=== PATIENT | female | born 1990 | race Caucasian/White ===

== ENCOUNTER → 2018-10-13 10:40 | Outpatient (CLI) | payer BC, SELFPAY ==
[2017-05-16 15:45] VITALS: BMI 20.5
--- NOTE | 2018-10-13 10:42 | RAD_ITS ---
STUDY: X-RAY - LEFT ELBOW REASON FOR EXAM: Female, 28 years old. Pain. TECHNIQUE: 3 view(s) of the elbow. COMPARISON: None. FINDINGS: Normal visualized humerus, radius and ulna. Normal radiocapitellar and ulnotrochlear articulations. The soft tissue structures are unremarkable. RAD/Elbow min 3 Views IMPRESSION: Normal x-ray examination of the elbow. Electronically Signed: Titi Rodriguez MD at 11:12 EST Tel , Service support ,
== END ==
PROVIDERS: Family Provider Family Medicine; PCP Family Medicine; Referring Provider Physician Assistant; Visit Provider Physician Assistant
DX: M25.522 Pain in left elbow (principal)
CPT/HCPCS: 73080

== ENCOUNTER → 2018-10-25 07:09 | Outpatient (CLI) | payer BC, SELFPAY ==
[2017-05-16 15:45] VITALS: BMI 20.5
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
== END ==
PROVIDERS: Family Provider Family Medicine; PCP Family Medicine; Referring Provider Physician Assistant; Visit Provider Physician Assistant
DX: S46.912A Strain of unspecified muscle, fascia and tendon at shoulder and upper arm level, left arm, initial encounter (principal); S53.402A Unspecified sprain of left elbow, initial encounter; S59.902A Unspecified injury of left elbow, initial encounter
CPT/HCPCS: 73221

== ENCOUNTER 2019-09-23 11:55 | Inpatient (IN) | payer BC, SELFPAY ==
[2017-05-16 15:45] VITALS: BMI 20.5
[2019-09-23 11:05] VITALS: BMI 26.5
[2019-09-23 11:39] LABS: ROM Internal Control Test YES-OK TO RESULT pt. (Internal QC); ROM Patient Test Negative (Negative)
[2019-09-23] MEDS: 0.9% Saline Lock 10 ML Syringe IV ×2 (12:20→17:50)
[2019-09-23 12:46] LABS: Absolute Lymphocyte Count 2.12 X10^3/uL (0.83-4.51); Absolute Neutrophil Count 9.8 X10^3/uL (2.0-7.7); Basophil# 0.03 X10^3/uL; Basophil% 0.2 % (0-1); Eosinophil# 0.08 X10^3/uL; Eosinophils% 0.6 % (0-5); Hemoglobin 13.7 g/dL (12.0-15.0); Lymphocyte # 2.12 X10^3/ul (4.0); Lymphocyte % 16.4 % (19-41); Mean Corp Hgb Conc 33.4 g/dL (32-36); Mean Corpuscular Hgb 29.7 pg (27.0-32.0); Mean Corpuscular Volume 88.7 fL (81-99); Mean Platelet Vol. 12.2 fl (6.2-12.0); Monocyte# 0.83 X10^3/uL; Monocyte% 6.4 % (0-10); NRBC Flagged by Analyzer 0 % (0-5); Neutrophil # 9.77 X10^3/uL (2.7-7.7); Neutrophil % 75.5 % (47-70); Platelet Count 197 K/mm3 (150-450); RBC Distribution Width CV 13.8 % (11.6-14.6); RBC Distribution Width SD 44.7 fl (35.1-43.9); Red Blood Count 4.62 M/mm3 (4.2-5.4); White Blood Count 12.9 K/mm3 (4.4-11.0)
[2019-09-23] MEDS: Lactated Ringers 500 ML 999 ML IV (17:50)
[2019-09-23] MEDS: Lactated Ringers 1,000 ML 200 ML IV ×2 (18:20→20:06)
--- NOTE | 2019-09-23 18:24 | PCM.HP.OB ---
History Date of Admission: 09/23/19 Final RENATA: 09/25/19 Gestational age: 39 Weeks and 5 Days History of this : This is a 29 year-old, G 1P0 @ 39.5 wks with spontaneous rupture membranes at 10:30 AM on 09/23/2019 in early labor. 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 Surgical History: Surgical History (Last Updated 10/13/18 @ 10:30 by Kristine Porter) history of left fibula removal history of repair of collar bone Allergies prochlorperazine [From Compazine] Adverse Reaction (Severe, Verified 09/23/19 11:07) Anaphylaxis Home Medications: Home Medications Ferrous Sulfate [Iron] 325 mg PO QODAY 09/23/19 Vit No.130/Iron/Folic [ Tablet] 1 ea PO DAILY 09/23/19 Smoking Status: Never smoker Alcohol: None Number of Fetus(es): 1 History Past Pregnancies: Past Pregnancies Delivery Date Name GA/ Weeks Outcome Route Wt Sex Labor Length Anesthesia Delivery Location Provider FOB Physical Exam General: Alert, Oriented x3 Abdomen: Soft, Gravid Assessment/Plan This is a 29 year-old, G1) @ 39.5 wks SROM in labor 1) admit to L&D 2) Monitor FHR/TOCO 3) anticipate 4) epidural for pain mgmt 5) pitocin augmentation if indicated
[2019-09-23] MEDS: fentaNYL-bupivacaine (epidural) 100 ML BAG EPIDURAL (18:38)
[2019-09-23] MEDS: Oxytocin 30 units/NS 500 ml 30 UNITS/500 ML IV.SOLN IV (18:57)
[2019-09-23] MEDS: Ondansetron 4 MG/2 ML Vial IV (20:58)
[2019-09-23] MEDS: Oxytocin 30 units/NS 500 ml 30 UNITS/500 ML IV.SOLN 334 UNITS IV (22:24)
--- NOTE | 2019-09-23 22:33 | PCM.OPRPT ---
Vaginal Delivery Maternal Presentation: Spontaneous Rupture of Membranes Amniotic Membrane Rupture Type: Spontaneous at home Rupture of Membrane time: 1030 Amniotic Fluid Description: Clear Final RENATA: 09/25/19 Gestational age: 39 Weeks and 5 Days Date of Procedure: 09/23/19 Pre-Operative Diagnosis: term gestation, SROM Post-Operative Diagnosis: Live female Surgery/ Procedure Performed: Spontaneous Vaginal Delivery Type of Anesthesia: Epidural Description of Procedure: of live female born without complication. Good maternal pushing efforts and head delivered, gentle downward traction placed and anterior shoulder delivered followed by the rest of the infant's body. The infant was placed on the mother's chest for skin the skin. Delayed cord clamping was performed. Placenta was delivered without difficulty. Presentation: Vertex Placental Delivery Description: Spontaneous Placenta Disposition: [facility] Cord Vessel Description: 3 Vessels Nuchal Cord Compression: Without compression Cord Entanglement: None Drain: Baron to straight drain Estimated Blood Loss: 300 A gender: Female (1 minute): 8 (5 minute): 9 Episiotomy Description: None Laceration: Perineal Extension/lac - repaired with 2-0 vicryl and 3-0 rapide, 2nd degree Medications given after delivery: IV Pitocin Complications: None
[2019-09-24 04:43] VITALS: BP 105/65; PULSE 80; RESP 16; TEMP 36.8
[2019-09-24] MEDS: Acetaminophen 500 MG Tablet 1000 MG PO ×2 (04:51→13:49)
--- NOTE | 2019-09-24 08:00 | PCM.PN.OB ---
Subjective: Patient seen at bedside, doing well. Patient reports good pain control. Mild lochia. Breast-feeding without difficulty. - Physical Exam Vitals/I&O's: Vital Signs Temp Pulse Resp BP 98.3 F 80 16 105/65 09/24/19 04:43 09/24/19 04:43 09/24/19 04:43 09/24/19 04:43 Oxygen Delivery Method Room Air Weight: 79.2 kg Body Mass Index (BMI) 26.5 Intake and Output for Last 24 Hours 09/22/19 09/23/19 09/24/19 23:59 23:59 23:59 Intake Total 2139.77 / 2139.77 833 / 833 Output Total 1700 / 1700 Balance 2139.77 / 2139.77 -867 / -867 General: Alert, Oriented x3 Abdomen: Soft, Non Tender, Non-Distended, - - fundus firm Extremities: No Calf Tenderness Laboratory Results 09/23/19 11:11: Vag Amniotic Fld Detect Negative 09/23/19 12:20: WBC 12.9 H, RBC 4.62, Hgb 13.7, Hct 41.0, MCV 88.7, MCH 29.7, MCHC 33.4, RDW Std Deviation 44.7 H, RDW Coeff of Rufina 13.8, Plt Count 197, MPV 12.2 H, Immature Gran % (Auto) 0.900, Neut % (Auto) 75.5 H, Lymph % (Auto) 16.4 L, [place] % (Auto) 6.4, Eos % (Auto) 0.6, Baso % (Auto) 0.2, Absolute Neuts (auto) 9.8 H, Absolute Lymphs (auto) 2.12, Nucleated RBC % 0 09/23/19 12:20: Blood Type A POSITIVE, Antibody Screen NEGATIVE Current Medications Acetaminophen (Tylenol) 1,000 mg PO Q8H PRN PRN PRN Reason: Pain Score 1-3/10 Last Admin: 09/24/19 04:51 Dose: 1,000 mg Documented by: Bisacodyl (Dulcolax) 10 mg RECTAL UD PRN PRN Reason: If no BM Dibucaine (Dibucaine) 1 applic TOPICAL TID PRN PRN; Protocol PRN Reason: Discomfort Hydrocortisone (Hytone) 1 applic TOPICAL TID PRN PRN; Protocol PRN Reason: Discomfort Ibuprofen (Motrin) 600 mg PO Q6H PRN PRN PRN Reason: Pain Score 1-3/10 Methylergonovine Maleate (Methergine) 0.2 mg IM X1 PRN PRN Reason: Excess bleeding/uterine atony Ondansetron HCl (Zofran) 4 mg IV Q4H PRN PRN PRN Reason: Nausea Oxycodone HCl (Oxyir) 5 - 10 mg PO Q4H PRN PRN PRN Reason: Pain Score 4-10/10 Senna/Docusate Sodium (Senokot-S, Valarie-Colace) 1 - 2 tablet PO DAILY PRN PRN PRN Reason: Constipation Simethicone (Mylicon) 80 mg PO PCHS PRN PRN Reason: Indigestion/Stomach pain Sodium Chloride () 5 - 15 ml IV UD PRN PRN Reason: SALINE FLUSH Medical Necessity - Tobacco Use Smoking Status: Never smoker Assessment/Plan PPD#1, doing well routine care pain mgmt
[2019-09-24 08:15] VITALS: BP 98/7; PULSE 71; RESP 16; TEMP 36.7; O2SAT 99
[2019-09-24] MEDS: Senna/Docusate Sodium 1 Tablet PO (10:41)
[2019-09-24 12:15] VITALS: BP 108/72; PULSE 84; RESP 16; TEMP 36.6; O2SAT 98
[2019-09-24 15:55] VITALS: BP 113/71; PULSE 72; RESP 16; TEMP 36.4
[2019-09-24 20:02] VITALS: BP 129/75; PULSE 69; RESP 16; TEMP 36.9
[2019-09-24 23:10] VITALS: BP 119/70; PULSE 60; RESP 16; TEMP 36.3
[2019-09-25 04:21] VITALS: BP 127/83; PULSE 67; RESP 16; TEMP 36.3
[2019-09-25] MEDS: Ibuprofen 600 MG Tablet PO (04:26)
[2019-09-25 08:11] VITALS: BP 119/72; PULSE 71; RESP 16; TEMP 36.6; O2SAT 96
[2019-09-25] MEDS: Acetaminophen 500 MG Tablet 1000 MG PO (08:23)
[2019-09-25] MEDS: Senna/Docusate Sodium 1 Tablet PO (08:23)
--- NOTE | 2019-09-25 08:45 | PCM.PN.OB ---
Subjective: Doing well per patient and nursing staff. Ambulating and taking PO without difficulty. Voiding and passing flatus. . Denies any chest pain, SOB, increased pain, leg pain, increased lochia or clots. Planning D/C home today. - Physical Exam Vitals/I&O's: Vital Signs Temp Pulse Resp BP Pulse Ox 97.9 F 71 16 119/72 96 09/25/19 08:11 09/25/19 08:11 09/25/19 08:11 09/25/19 08:11 09/25/19 08:11 Oxygen Delivery Method Room Air Weight: 174 lb 9.698 oz Body Mass Index (BMI) 26.5 Intake and Output for Last 24 Hours 09/23/19 09/24/19 09/25/19 23:59 23:59 23:59 Intake Total 2139.77 / 2139.77 833 / 833 1000 / 1000 Output Total 1700 / 1700 Balance 2139.77 / 2139.77 -867 / -867 1000 / 1000 General: Oriented x3, Cooperative HEENT: Atraumatic, Normocephalic Neck: Trachea Midline Lungs: Clear to auscultation, Normal air movement, No rhonchi, No wheeze Cardiovascular: Regular rate, Regular Rhythm, No murmurs Abdomen: Bowel Sounds Present, - - Fundus firm 2 below U Extremities: No edema - Nate's negative bilaterally Psych/Mental Status: Normal Affect, Appropriate Current Medications Acetaminophen (Tylenol) 1,000 mg PO Q8H PRN PRN PRN Reason: Pain Score 1-3/10 Last Admin: 09/25/19 08:23 Dose: 1,000 mg Documented by: Bisacodyl (Dulcolax) 10 mg RECTAL UD PRN PRN Reason: If no BM Dibucaine (Dibucaine) 1 applic TOPICAL TID PRN PRN; Protocol PRN Reason: Discomfort Hydrocortisone (Hytone) 1 applic TOPICAL TID PRN PRN; Protocol PRN Reason: Discomfort Ibuprofen (Motrin) 600 mg PO Q6H PRN PRN PRN Reason: Pain Score 1-3/10 Last Admin: 09/25/19 04:26 Dose: 600 mg Documented by: Methylergonovine Maleate (Methergine) 0.2 mg IM X1 PRN PRN Reason: Excess bleeding/uterine atony Ondansetron HCl (Zofran) 4 mg IV Q4H PRN PRN PRN Reason: Nausea Oxycodone HCl (Oxyir) 5 - 10 mg PO Q4H PRN PRN PRN Reason: Pain Score 4-10/10 Senna/Docusate Sodium (Senokot-S, Valarie-Colace) 1 - 2 tablet PO DAILY PRN PRN PRN Reason: Constipation Last Admin: 09/25/19 08:23 Dose: 1 tablet Documented by: Simethicone (Mylicon) 80 mg PO PCHS PRN PRN Reason: Indigestion/Stomach pain Sodium Chloride () 5 - 15 ml IV UD PRN PRN Reason: SALINE FLUSH Medical Necessity - Tobacco Use Smoking Status: Never smoker Assessment/Plan A:PPD #2 P: 1) Routine and instructions reviewed 2) D/C home 3) Follow up in 2 weeks and 6 weeks. 4) Declines Rx for analgesia
--- NOTE | 2019-09-25 08:49 | DCINST_ITS ---
Discharge Diet: No Restrictions Discharge Activity: Return to Normal Activity, May not drive while taking narcotic pain medications., May Shower, May Take a Tub Bath Weight Bearing Status: Full weight bearing Call your doctor if your incision/area has: Continuous Slow Oozing, Sudden Inc reased Bleeding, Increased Pain/ Swelling, Increased Redness, Foul Smelling Discharge Call your doctor if you observe: Fever of 101 or Higher, Inability to urinate, Inability to have a bowel movement, Using more than one pad per hour, Shortness of breath, Chest pain, Increased palpitations (irregular heartbeat), Calf discomfort, Uncontrolled pain Additional Instructions: If you experience any of the following, contact your healthcare provider. * Bleeding that soaks a pad every hour for 2 hours * Fever 100.4 or higher * Unrelieved incision or abdominal pain * Swelling, redness, discharge or bleeding from your incision or episiotomy site * Your incision begins to separate * Problems urinating (including inability to urinate or burning while urinating). * Visual changes * Severe headache * Flu-like symptoms * Pain or redness in one of both of your breasts * Pain, warmth, tenderness or swelling in your legs, especially the calf area * Frequent nausea and vomiting * Symptoms of depression or anxiety If you experience any of the following, call 911 or go to the nearest Emergency Room. * Chest pain * Problems breathing * Seizure activity * Partial or complete paralysis of a body part, slurred speech, weakness or drooping of the face, or a sudden inability to walk or hold your balance Allergies/Adverse Reactions: Allergies prochlorperazine [From Compazine] Adverse Reaction (Severe, Verified 09/23/19 11:07) Anaphylaxis Medications to take at Discharge Vit No.130/Iron/Folic [ Tablet] 1 ea PO DAILY 09/23/19 Please Follow Up With: Alyssia Liriano MD When: Call to make an appointment with your doctor in 2 weeks and 6 weeks. If you had elevated Blood Pressure or 4th degree laceration you will need to be seen in 2 weeks. Primary Care Physician: Britton Izaguirre MD [Primary Care Provider] - Test Results: Test results from this visit will be discussed in further detail at your follow-up appointment, if applicable.
[2019-09-25 08:52] VITALS: BP 119/72; PULSE 63; RESP 16; TEMP 36.9; O2SAT 98
== END 2019-09-25 10:20 | disposition home or self-care (01) | DRG 807 ==
LOC: WPOUT 11:57 → WP 11:57
PROVIDERS: Admitting Provider Obstetrics & Gynecology; PCP Family Medicine; Referring Provider Obstetrics & Gynecology; Visit Provider Obstetrics & Gynecology
DX: O70.1 Second degree perineal laceration during delivery (principal); Z37.0 Single live birth; Z3A.39 39 weeks gestation of pregnancy; Z85.830 Personal history of malignant neoplasm of bone
CPT/HCPCS: 59025; 59050; 84112; 85025; 86850; 86900; 86901; 99218; J7120; A4216; G0378; J2405

== ENCOUNTER → 2019-10-23 11:31 | Outpatient (CLI) | payer BC, SELFPAY ==
[2019-09-23 11:05] VITALS: BMI 26.5
== END ==
PROVIDERS: PCP Family Medicine; Referring Provider Obstetrics & Gynecology; Visit Provider Obstetrics & Gynecology
DX: Z39.1 Encounter for care and examination of lactating mother (principal)
CPT/HCPCS: 96152

== ENCOUNTER 2021-10-07 13:49 | Emergency (ER) | payer BC, SELFPAY ==
[2021-10-07 13:50] VITALS: BP 115/81; PULSE 90; RESP 18; TEMP 36.6; O2SAT 100; BMI 24.1
--- NOTE | 2021-10-07 14:41 | CT_ITS ---
STUDY: CT ABDOMEN AND PELVIS WITH CONTRAST REASON FOR EXAM: Female, 31 years old. abdominal pain -- IV PO Contrast RADIATION DOSAGE (If Supplied By Facility): CTDIvol = ( 8.545 ) mGy, DLP = ( 546.10 ) mGycm TECHNIQUE: Transaxial images were obtained from the dome of the diaphragm to the symphysis pubis with oral contrast. 100 mm ISOVUE 300 was administered. Sagittal and coronal images were reconstructed. Individualized dose optimization techniques were used for this CT. COMPARISON: None. FINDINGS: The visualized lung bases are unremarkable. The visualized portions of the heart are within normal limits. Small simple hepatic cysts. No required imaging follow-up needed given high likelihood of benign nature. Normal gallbladder and extrahepatic biliary system. Normal spleen. Normal pancreas. Normal bilateral adrenal glands. Normal right kidney. Normal left kidney. Normal visualized stomach. Normal small intestine. Fecal residue throughout the colon but no colon wall thickening. The appendix is visualized and appears normal. Normal abdominal aorta. Normal inferior vena cava. Normal retroperitoneum. Normal urinary bladder. Intrauterine fetus identified. Normal abdominal wall. Normal osseous structures. CT/Abdomen/Pelvis WITH Contrast IMPRESSION: 1. No CT evidence of appendicitis. 2. Intrauterine fetus. Electronically Signed: Chidi Juarez MD (Brooks) at 16:41 EST Reading Location ID and State: [facility] / [place] , Service support ,
--- NOTE | 2021-10-07 14:42 | EDS_ITS ---
HPI HPI - GI History of Present Illness Chief Complaint: Abd Pain Detail of Chief Complaint: Abdominal pain that started about 4 days ago Informant: patient Narrative Narrative: Patient presents to the emergency department complaint of abdominal pain initially started by 4 days ago. Patient states she initially had intermittent sharp stabbing pains. At rest she just has a dull ache in its only about a 3 out of 10 but with movement pain goes to 10 out of 10. Patient was seen by her [employer]MER yesterday as she is 31 weeks however the pain was not severe yesterday. Patient seen again by covering physician and referred to the emergency department to rule out appendicitis. Patient denies urinary symptoms. She has had no prior abdominal surgeries. Patient denies fever. She denies vomiting. She denies diarrhea. She denies blood in her stool or black tarry stool. Patient is G2, P1 and 31 weeks . [facility] Medical History (Updated 10/07/21 @ 17:[address] Frantz Zaldivar, DO) History of osteosarcoma Home Medications vit no.[id number] 1 ea PO DAILY 09/23/19 [History Last Taken 09/23/19 07:00] Allergy/AdvReac Type Severity Reaction Status Date / Time prochlorperazine AdvReac Severe Anaphylaxis Verified 10/07/21 13:52 [From Compazine] Family History (Updated 10/13/18 @ 10:30 by Kristine Porter) Other Cancer Surgical History history of left fibula removal history of repair of collar bone Social History (Updated 10/28/18 @ 08:38 by YINA Mejia) Smoking Status: Never smoker second hand exposure: No alcohol intake: current alcohol intake frequency: a few times a month Alcohol type: beer, wine and hard liquor substance use type: does not use what type of physical activity do you participate in: yoga frequency: 5-6 times per week duration: 45-60 minutes/day ROS ROS ED Constitutional Constitutional ED: Reports systems reviewed and no addt'l complaints, except as documented; Denies body ache(s), change in weight or chills Eyes Eyes: Denies acute decrease in peripheral vision, change in vision, double vision or loss of vision ENT ENT ED: Reports none; Denies ear pain, lip swelling, loss taste/smell, neck pain, otalgia or sore throat Cardiovascular Cardiovascular: Reports none; Denies abdominal pain, chest pain with activity, leg edema, lightheadedness, palpitations, rapid heart rate or syncope Respiratory/Chest Respiratory/Chest: Reports none; Denies change in mental status, dry cough, dyspnea, hemoptysis, shortness of breath at rest or shortness of breath with exertion Gastrointestinal Gastrointestinal: Reports none and abdominal pain; Denies change in stool character, diarrhea, hematemesis, hematochezia, melena, rectal bleeding or vomiting Genitourinary Genitourinary ED: Reports none; Denies abdominal discomfort, anuria, dysuria, genital pain or polyuria Musculoskeletal Musculoskeletal: Reports none; Denies arthralgias, back pain, difficulty walking, extremity pain, muscle weakness or myalgias Integumentary Reports none; Denies abscess or rash Neurologic Neurologic: Reports none; Denies abnormal gait, confusion, focal weakness, frequent falls, headache(s), loss of vision, numbness, paresthesias, radicular pain, vertigo or weakness Psychiatric Psychiatric: Reports systems reviewed and no addt'l complaints, except as documented and none; Denies behavioral changes, confusion, difficulty concentrating, hallucinations, suicidal ideation, tactile hallucinations or visual hallucinations Endocrine Endocrinology: Denies none, cold intolerance, excessive sweating, fatigue or heat intolerance Hematologic/Lymphatic Hematologic/Lymphatic: Reports none; Denies anemia, easy bleeding or easy bruising Allergic/Immunologic Allergic/Immunologic ED: Denies as per HPI, none, lip swelling, mouth swelling, throat swelling, tongue swelling or hives EXAM Physical Exam Const Vital Signs: 10/07/21 13:50 Temperature 97.8 F Temperature Source Temporal Pulse Rate 90 Respiratory Rate 18 Blood Pressure 115/81 H Blood Pressure Mean 92 Pulse Ox 100 Oxygen Delivery Method Room Air Positive well nourished and well developed General Appearance ED: well developed and NAD HEENT Reports TM's clear and moist mucous membranes normocephalic and atraumatic; Negative for trauma or tenderness Tympanic Membrane ED: Yes TM's clear Eyes PERRL and EOMs intact bilaterally General Eye ED: Negative for pale conjunctiva or scleral icterus Neck no lymphadenopathy, supple and no JVD General: Negative for tenderness Chest Wall inspection of chest normal and palpation of chest normal Chest: Negative for tenderness Resp normal respiratory effort and clear to auscultation bilaterally Effort and Inspection: Negative for respiratory distress or pain with movement Auscultation: Negative for rhonchi, wheezes or diminished lung sounds Cardio regular rate, regular rhythm, S1 normal heart sound, S2 normal heart sound and no murmurs Peripheral Pulses: pulses 2+ throughout GI normal to inspection, nondistended, normoactive bowel sounds, soft to palpation, non-distended and no masses GI Narrative: Patient with gravid uterus that is nontender on exam. Patient does have tenderness palpation of the right lower quadrant with guarding. There is no rebound or rigidity. No peritoneal signs noted. Back/Spine no CVA tenderness and no thoracic nor lumbar tenderness Extremity normal to inspection General Extremety ED: Negative for edema General Extremity: Negative for edema Neuro oriented x3, CN's II-XII intact bilaterally, no sensory deficits noted and gait normal Sensorium / Orientation: awake, alert, oriented to person, oriented to place and oriented to time Motor Exam: strength 5/5 throughout and strength abnormal Psych mental status grossly normal Skin no rashes or lesions noted and no wounds MDM MDM MDM Narrative Medical decision making narrative: IV line established on arrival. Patient did not anything for pain. She was noted to have a leukocytosis with a white blood cell count of 19,000. Her chemistries were unremarkable and urine was normal. CAT scan of the abdomen pelvis with IV and p.o. contrast showed a well appendix and no other acute disease process. At this point etiology of her abdominal pain is unclear. I did discuss case with Dr. Griffith who referred patient to the emergency department today and she asked that patient keep her regularly scheduled appointment. Patient advised to take Tylenol for discomfort. Patient also advised to return if worsening pain, fever, vomiting, or condition should worsen anyway. Lab Data Attestation: I reviewed the patient's lab results. Labs: Laboratory Results - last 24 hr 10/07/21 10/07/21 10/07/21 15:00 15:05 15:05 WBC 19.0 H RBC 4.03 L Hgb 11.9 L Hct 36.1 L MCV 89.6 MCH 29.5 MCHC 33.0 RDW Std Deviation 42.8 RDW Coeff of Rufina 13.1 Plt Count 217 MPV 10.9 Immature Gran % (Auto) 2.000 H Neut % (Auto) 79.7 H Lymph % (Auto) 10.5 L Saunders % (Auto) 5.3 Eos % (Auto) 2.1 Baso % (Auto) 0.4 Absolute Neuts (auto) 15.2 H Absolute Lymphs (auto) 1.99 Nucleated RBC % 0 Sodium 137 Potassium 3.7 Chloride 105 Carbon Dioxide 27.0 Anion Gap 5 BUN 6 L Creatinine 0.63 Estim Creat Clear Calc 128.12 Est GFR (MDRD) Af Amer 138 Est GFR (MDRD) Non-Af 114 BUN/Creatinine Ratio 9.5 L Glucose 78 Calcium 9.0 Total Bilirubin 0.40 AST 12 L ALT 12 L Alkaline Phosphatase 106 Total Protein 7.4 Albumin 2.5 L Globulin 4.9 H Albumin/Globulin Ratio 0.5 L Urine Color Yellow Urine Clarity Clear Urine pH 6.5 Ur Specific [place] 1.005 Urine Protein Negative Urine Glucose (UA) Normal Urine Ketones 5 H Urine Occult Blood Negative Urine Nitrite Negative Urine Bilirubin Negative Urine Urobilinogen Normal Ur Leukocyte Esterase 25 H Urine RBC 0 SEEN Urine WBC 0 SEEN Ur Squamous Epith Cells 0 SEEN Urine Bacteria 0 SEEN Urine Mucus 0 SEEN Radiography Diagnostic Testing: Clinical Impression(s) from Imaging Studies Abdomen/Pelvis CT 10/07/21 14:[address]: 1[address] evidence of appendicitis. 2. Intrauterine fetus. Electronically Signed: Chidi Juarez MD (Brooks) at 16:41 EST Reading Location ID and State: [address] [place] [address] , Service support , Discharge Plan Triage Chief Complaint: Abd Pain ED Provider: Frantz Zaldivar Dx/Rx/DC Orders Clinical Impression: Abdominal pain Instructions: ED Abdominal Pain Unkn Cause Fem Prescriptions: No Action vit no.[id number] 1 EACH tablet 1 ea PO DAILY RF: 0 Primary Care Provider: Matthew Hanley Referrals: Alyssia Liriano MD [STAFF PHYSICIAN] - Keep Alexandro appointment Matthew Hanley DO [Primary Care Provider] - Disposition Disposition: Home, Self Care
[2021-10-07] MEDS: 0.9% Normal Saline 1,000 ML 125 ML IV (15:06)
[2021-10-07 15:14] LABS: Bacteria 0 SEEN /hpf (None Seen); Mucous, Urine 0 SEEN /hpf (<or=2+); Red Blood Cells-Urine 0 SEEN /hpf (0-5); Squamous Epithelial Cells - UA 0 SEEN /hpf (5-10); White Blood Cells 0 SEEN /hpf (0-5)
[2021-10-07 15:23] LABS: Color, Urine Yellow (Yellow); Glucose, Dipstick Normal (Normal); Ketone-Dipstick 5 mg/dl (Negative); Leukocyte Esterase-Dipstick 25 /ul (Negative); Nitrite-Dipstick Negative (Negative); Occult Blood-Urine Negative /ul (Negative); Protein-Dipstick Negative (Negative); Specific Gravity, Urine 1.005 (1.002-1.030); Urine Bilirubin Dipstick Negative (Negative); Urine Clarity Clear (Clear); Urine Urobilinogen Normal (Normal); Urine pH 6.5 (5.0 - 8.0)
[2021-10-07 15:26] LABS: Absolute Lymphocyte Count 1.99 X10^3/uL (0.83-4.51); Absolute Neutrophil Count 15.2 X10^3/uL (2.0-7.7); Basophil# 0.07 X10^3/uL; Basophil% 0.4 % (0-1); Eosinophil# 0.39 X10^3/uL; Eosinophils% 2.1 % (0-5); Hematocrit 36.1 % (37-47); Hemoglobin 11.9 g/dL (12.0-15.0); Lymphocyte # 1.99 X10^3/ul (0.83-4.51); Lymphocyte % 10.5 % (19-41); Mean Corpuscular Hgb 29.5 pg (27.0-32.0); Mean Corpuscular Volume 89.6 fL (81-99); Mean Platelet Vol. 10.9 fl (6.2-12.0); Monocyte# 1.01 X10^3/uL; Monocyte% 5.3 % (0-10); NRBC Flagged by Analyzer 0 % (0-5); Neutrophil # 15.15 X10^3/uL (2.7-7.7); Neutrophil % 79.7 % (47-70); Platelet Count 217 K/mm3 (150-450); RBC Distribution Width CV 13.1 % (11.6-14.6); RBC Distribution Width SD 42.8 fl (35.1-43.9); Red Blood Count 4.03 M/mm3 (4.2-5.4)
[2021-10-07 15:48] LABS: ALB/GLOB Ratio 0.5 RATIO (0.9-2.4); AST(SGOT) 12 U/L (15-37); Alanine Aminotransfer ALT/SGPT 12 U/L (13-56); Albumin, Serum 2.5 g/dL (3.2-5.0); Alkaline Phosphatase 106 U/L (45-117); Anion Gap 5 (5-15); BUN 6 mg/dL (7-18); BUN/Creat Ratio 9.5 RATIO (10-20); Chloride 105 mmol/L (98-107); Creatinine, Serum 0.63 mg/dL (0.55-1.02); EST Glomerular Filtration Rate 114 mL/min (>60); Est Glom Filt Rate - Afr Amer 138 mL/min (>60); Estimated Creatinine Clearance 128.12 ml/min; Globulin 4.9 g/dL (2.2-4.2); Glucose 78 mg/dL (74-106); Potassium 3.7 mmol/L (3.5-5.1); Protein, Total 7.4 g/dL (6.4-8.2); Sodium Level 137 mmol/L (136-145)
[2021-10-07 16:00] VITALS: BP 116/79; PULSE 83; RESP 14; O2SAT 100
== END 2021-10-07 17:49 | disposition home or self-care (01) ==
PROVIDERS: Emergency Provider Emergency Medicine; PCP Student in an Organized Health Care Education/Training Program; Visit Provider Emergency Medicine
DX: O26.893 Other specified pregnancy related conditions, third trimester (principal); R10.9 Unspecified abdominal pain; Z3A.31 31 weeks gestation of pregnancy
CPT/HCPCS: 74177; 80053; 81001; 85025; 96360; 96361; 99283; J7030; Q9967; A4216

== ENCOUNTER 2021-12-12 04:20 | Inpatient (IN) | payer BC, SELFPAY ==
[2021-12-12] VITALS (43 sets, daily range): BP systolic 103–146; BP diastolic 65–89; PULSE 67–100; RESP 16; TEMP 36.1–36.9; O2SAT 97–100; BMI 25.6
[2021-12-12] MEDS: Lactated Ringers 500 ML 999 ML IV (04:45)
[2021-12-12 04:51] LABS: Absolute Lymphocyte Count 1.95 X10^3/uL (0.83-4.51); Absolute Neutrophil Count 14.8 X10^3/uL (2.0-7.7); Basophil# 0.03 X10^3/uL; Basophil% 0.2 % (0-1); Eosinophil# 0.28 X10^3/uL; Eosinophils% 1.5 % (0-5); Hematocrit 32.6 % (37-47); Hemoglobin 11.1 g/dL (12.0-15.0); Lymphocyte # 1.95 X10^3/ul (0.83-4.51); Lymphocyte % 10.6 % (19-41); Mean Corpuscular Hgb 27.9 pg (27.0-32.0); Mean Corpuscular Volume 81.9 fL (81-99); Mean Platelet Vol. 12.7 fl (6.2-12.0); Monocyte# 1.17 X10^3/uL; Monocyte% 6.4 % (0-10); NRBC Flagged by Analyzer 0 % (0-5); Neutrophil # 14.77 X10^3/uL (2.7-7.7); Neutrophil % 80.6 % (47-70); Platelet Count 167 K/mm3 (150-450); RBC Distribution Width CV 13.6 % (11.6-14.6); Red Blood Count 3.98 M/mm3 (4.2-5.4); White Blood Count 18.3 K/mm3 (4.4-11.0)
[2021-12-12] MEDS: Lactated Ringers 1,000 ML 50 ML IV (05:25)
[2021-12-12] MEDS: fentaNYL-bupivacaine (epidural) 100 ML BAG EPIDURAL (06:17)
--- NOTE | 2021-12-12 06:54 | HP.PCM.OB_ITS ---
HPI - General General Date of Admission: 12/12/21 HPI Narrative REX MARAVILLA, is a 31 F @ 40.6wks who presents complaining of contractions. Maternal Data Information Final RENATA: 12/06/21 Gestational age: 40.6 PFSH PFSH Medical History (Updated 12/12/21 @ 06:[address] Alyssia Liriano MD) History of osteosarcoma Home Medications vit no.[id number] 1 ea PO DAILY 09/23/19 [History Last Taken 12/11/21 07:00] lactobacillus comb no.10 [Probiotic] 20,000 mmu cells PO DAILY 12/12/21 [History Last Taken 12/11/21 07:00] metronidazole 500 mg PO BID 12/12/21 [History Last Taken 12/11/21 19:00] Allergy/AdvReac Type Severity Reaction Status Date / Time prochlorperazine AdvReac Severe Anaphylaxis Verified 12/12/21 05:14 [From Compazine] Family History (Updated 10/13/18 @ 10:30 by Kristine Porter) Other Cancer Surgical History history of left fibula removal history of repair of collar bone Social History (Updated 10/28/18 @ 08:38 by YINA Mejia) Smoking Status: Never smoker second hand exposure: No alcohol intake: current alcohol intake frequency: a few times a month Alcohol type: beer, wine and hard liquor substance use type: does not use what type of physical activity do you participate in: yoga frequency: 5-6 times per week duration: 45-60 minutes/day History Elective abortions Hx Para 1 Spontaneous abortions Hx # Term Pregnancies Ectopic pregnancies Hx # Pregnancies Multiple births # of living children NST FHR Rate Baby A Baseline: 135 Variability:: Moderate Accelerations:: 15 x 15 Decelerations:: None NST Reactive:: Yes FHR Category:: Category I Uterine Activity:: irregular Vital Signs Vital Signs Vital Signs: 12/12/21 01:51 12/12/21 01:59 12/12/21 04:15 Temperature Temperature Source Pulse Rate 76 91 80 Blood Pressure 121/87 H 138/84 H BP Systolic 121 138 BP Diastolic 87 84 Pulse Ox 97 98 12/12/21 04:27 12/12/21 05:54 12/12/21 05:55 Temperature 98.1 F Temperature Source Temporal Pulse Rate 96 Blood Pressure 142/79 H BP Systolic 142 BP Diastolic 79 Pulse Ox 99 12/12/21 05:59 12/12/21 06:04 12/12/21 06:09 Temperature Temperature Source Pulse Rate 95 85 84 Blood Pressure 140/73 H 135/80 H 146/81 H BP Systolic 140 135 146 BP Diastolic 73 80 81 Pulse Ox 98 98 98 12/12/21 06:14 12/12/21 06:19 12/12/21 06:21 Temperature 98.5 F Temperature Source Pulse Rate 88 81 Blood Pressure 113/65 124/66 H BP Systolic 113 124 BP Diastolic 65 66 Pulse Ox 97 98 12/12/21 06:24 12/12/21 06:26 12/12/21 06:29 Temperature Temperature Source Pulse Rate 83 82 81 Blood Pressure 112/67 121/77 H BP Systolic 112 121 BP Diastolic 67 77 Pulse Ox 98 99 12/12/21 06:34 12/12/21 06:40 12/12/21 06:41 Temperature Temperature Source Pulse Rate 89 91 82 Blood Pressure 103/73 124/73 H BP Systolic 103 124 BP Diastolic 73 73 Pulse Ox 100 99 12/12/21 06:44 12/12/21 06:45 12/12/21 06:50 Temperature Temperature Source Pulse Rate 80 86 73 Blood Pressure 127/79 H 132/78 H BP Systolic 127 132 BP Diastolic 79 78 Pulse Ox 100 100 12/12/21 06:54 Temperature Temperature Source Pulse Rate 77 Blood Pressure 125/76 H BP Systolic 125 BP Diastolic 76 Pulse Ox Weight Weight: 76.476 kg Body Mass Index (BMI) 25.6 Physical Exam Const alert and oriented x3 General Appearance: cooperative HEENT normocephalic GI GI Narrative: Gravid, non tender to palpation. OB / External & Speculum: external exam normal Extremity normal to inspection Skin no rashes or lesions noted Neuro oriented x3 and CN's II-XII intact bilaterally Psych Appearance: grossly normal Labs Labs Labs: Blood Type A POSITIVE Antibody Screen NEGATIVE Hct 32.6 % (37-47) L Hgb 11.1 g/dL (12.0-15.0) L Rhogam given: No Assessment & Plan (1) 40 weeks gestation of : [facility] Monitor VS Anticipate
[2021-12-12] MEDS: Oxytocin 30 units/NS 500 ml 30 UNITS/500 ML IV.SOLN 334 UNITS IV (09:19)
--- NOTE | 2021-12-12 09:26 | EX.PCM.OBRPT ---
Assessment & Plan (1) Vaginal delivery: Maternal Data Information Gestational age: 40.6 Vaginal Delivery Maternal Presentation Maternal Presentation: Active Labor and Spontaneous Rupture of Membranes Operative Information Date of Procedure: 12/12/21 Pre-Operative Diagnosis: post term gestation, active labor, srom Post-Operative Diagnosis: same, live female Surgery / Procedure Performed: Spontaneous Vaginal Delivery Type of Anesthesia: Epidural Drain: Baron to straight drain Estimated Blood Loss: 250 Time of Delivery: 09:18 Findings Description of Procedure: On my arrival in the room heart tones in the 60s x approximately 3 minutes. Patient was in hands and knees. At this time decision made for immediate delivery with possible need for vacuum assistance. Patient was turned onto her back. At this time with good maternal pushing efforts she delivered the infant's head two loose nuchal's were appreciated and they were reduced. Gentle downward traction and good maternal efforts delivered the anterior shoulder followed by the rest the 's body. No vacuum application was needed. At this time the infant was placed on the mother's chest it was vigorous at time of . Delayed cord clamping was performed. No vaginal or perineal lacerations were appreciated. Pitocin was started and the placenta was delivered spontaneously without complication and intact. Presentation: Vertex Amniotic Membrane Rupture Type: Spontaneous Amniotic Fluid Description: Clear Placental Delivery Description: Spontaneous Placenta Disposition: [facility] Specimen(s) Removed: Placenta Cord Entanglement: Around neck x 2, loose Nuchal Cord Compression: With compression A Gender: Female (1 minute): 8 (5 minute): 9 Delayed Cord Clamping: Yes Post Vaginal Delivery Medications Given After Delivery: IV Pitocin Episiotomy Description: None Laceration: None Complication Complications: None
--- NOTE | 2021-12-12 15:32 | NURSING ---
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 Foot drop and gait disturbance at times, but pt. independent with ambulation and declines concerns with moving around independently.
[2021-12-12] MEDS: Ibuprofen 600 MG Tablet PO (19:33)
--- NOTE | 2021-12-12 19:38 | NURSING ---
1914- Bedside report given to dermatology technician RN who will be resuming care at this time.
[2021-12-13] VITALS: BP 123/72; PULSE 61; RESP 16; TEMP 36.4
[2021-12-13 04:13] VITALS: BP 145/89; PULSE 72; RESP 16; TEMP 36.6
[2021-12-13] MEDS: Ibuprofen 600 MG Tablet PO (04:23)
--- NOTE | 2021-12-13 09:07 | PN.OBGYN_ITS ---
Subjective Subjective Pain well controlled. Average lochia. Objective Data Objective Data Vital Signs: Vital Signs Temp Pulse Resp BP Pulse Ox 97.8 F 72 16 145/89 H 98 12/13/21 04:13 12/13/21 04:13 12/13/21 04:13 12/13/21 04:13 12/12/21 15:28 Oxygen Delivery Method Room Air Weight: 76.476 kg Body Mass Index (BMI) 25.6 Intake & Output: Intake and Output for Last 24 Hours 12/11/21 12/12/21 12/13/21 23:59 23:59 23:59 Intake Total 1887.50 / 1887.50 Output Total 1600 / 1600 Balance 287.50 / 287.50 Lab / Micro Data Result Diagrams: 12/12/21 04:36 Micro: Microbiology 12/12/21 04:40 Nasal Secretion SARS-CoV-2 Antigen (Rapid) - Final Physical Exam Const alert and no apparent distress Narrative: Fundus firm, below umbilicus. Assessment & Plan (1) Vaginal delivery: PLAN: day #1 status post vaginal delivery. Patient and are doing well. Patient desires discharge home today. is breast- feeding and doing well
--- NOTE | 2021-12-13 09:08 | PCM.DC.SUM ---
Providers Date of Admission: 12/12/21 Primary Care Physician: Dr. Matthew Hanley DO Reason For Visit: VAGINAL DELIVERY Diagnosis Discharge Diagnosis (1) Vaginal delivery: Status: Acute Code(s): O80 - Encounter for full-term uncomplicated delivery Medications at Discharge Home Medications vit no.[id number] 1 ea PO DAILY 09/23/19 Probiotic 20,000 mmu cells PO DAILY 12/12/21 Hospital Course Operations None Summary of Care Provided Hospital Course: 31-year-old multigravida female admitted at 40-6/7 weeks gestation. She has spontaneous delivery on 12/12/2021 without complications. By postoperative day #1 she was ambulating, urinating tolerating regular diet without difficulty and the was breast-feeding. She was discharged home with routine instructions and follow-up. Weight / BMI Weight Weight: 76.476 kg Body Mass Index (BMI) 25.6 ABG / Lab / Microbiology Data Result Diagrams: 12/12/21 04:36 Microbiology: Microbiology 12/12/21 04:40 Nasal Secretion SARS-CoV-2 Antigen (Rapid) - Final D/C Instructions May resume sexual activity in: 6 weeks Please Follow Up With: Rocio Interiano MD When: Follow up with our office in 1-2 and 6 weeks or as needed. [phone] Meaningful Use Info Meaningful Use Diagnoses (Choose all that apply): None applicable Discharge Plan Admission Admit Date/Time: 12/12/21 04:20 Primary Reason for Your Visit: Vaginal delivery Attending Provider: Alyssia Liriano Primary Care Provider: Matthew Hanley Discharge Orders/Prescriptions Prescriptions: Continued vit no.[id number] 1 EACH tablet 1 ea PO DAILY RF: 0 Probiotic 20 billion cell Capsule 20,000 mmu cells PO DAILY RF: 0 Discontinued metronidazole 500 mg Tablet 500 mg PO BID RF: 0 Referrals / Follow Up: Matthew Hanley DO [Primary Care Provider] - Disposition Disposition (needs filled in before D/C Order can be placed): Home, Self Care
[2021-12-13 09:30] VITALS: BP 124/81; PULSE 85; RESP 16; TEMP 36.3
== END 2021-12-13 11:15 | disposition home or self-care (01) | DRG 807 ==
LOC: WPOUT 04:26 → WP 04:26
PROVIDERS: Admitting Provider Obstetrics & Gynecology; PCP Student in an Organized Health Care Education/Training Program; Visit Provider Obstetrics & Gynecology
DX: O69.1XX0 Labor and delivery complicated by cord around neck, with compression, not applicable or unspecified (principal); Z37.0 Single live birth; Z3A.40 40 weeks gestation of pregnancy
CPT/HCPCS: 59025; 59050; 85025; 86850; 86900; 86901; 87426; 99218; J7120; G0378